=== PATIENT | male | born 1960 | race African-American/Black ===

== ENCOUNTER 2025-02-13 12:42 | Emergency (ER) | payer OTHER ==
[~2025-02-13] VITALS: Ht 185.4 cm; Wt 82.6 kg
[~2025-02-13 12:42] MED LIST: ANAPROX DS550 MG PO; MOTRIN800 MG PO
== END 2025-02-13 15:02 | disposition home or self-care (01) ==
LOC: ED 12:42
DX: J06.9 Acute upper respiratory infection, unspecified (principal); K21.9 Gastro-esophageal reflux disease without esophagitis; R21 Rash and other nonspecific skin eruption